=== PATIENT | male | born 1940 | race Caucasian/White ===

== ENCOUNTER 2019-08-27 12:54 | Outpatient (CLI) | payer OTHER, MEDICAID | END 2019-08-27 21:07 | disposition home or self-care (01) | LOC: SRD 12:54 | PROVIDERS: ATTEND Internal Medicine | DX: Z01.818 Encounter for other preprocedural examination (principal) | CPT/HCPCS: 71046-TC ==

== ENCOUNTER 2020-04-05 19:19 | Inpatient (IN) | payer OTHER, MEDICAID ==
[~2020-04-05] VITALS: Ht 170.2 cm; Wt 84.4 kg
[2020-04-05 19:19] VITALS: BP_SYST 124
--- NOTE | 2020-04-05 19:19 | NUR ---
Placed in room 3 . Placed on radiation monitor, blood pressure machine and pulse oximeter. To gown for exam. Side rails up.
--- NOTE | 2020-04-05 19:25 | NUR ---
ER at bedside examining patient.
--- NOTE | 2020-04-05 19:30 | NUR ---
Pt biba for witness tonic clonic seizure x 1 hr ago. Son, Juan Antonio stated patient seizure lasted 30 seconds. Recent knee surgery on Monday03/30/20. Son also stated pt had not passed bowel since Monday03/29/2020. Pt does not remember seizure, has hx. Pt AxOx3, denies SOB, FEVER, CP. Side rails up, seizure pads in place.
--- NOTE | 2020-04-05 19:35 | NUR ---
sleep technologist at bedside.
[2020-04-05 19:53] LABS: BASOPHILS % (AUTO) 0.2 % (0.0-2.0); EOSINOPHILS % (AUTO) 0.4 % (0.0-4.0); HEMATOCRIT 27.6 % (36-54); HEMOGLOBIN 9.3 g/dL (14.0-18.0); LYMPHOCYTES # (AUTO) 0.7 K/uL (1.0-5.5); LYMPHOCYTES % (AUTO) 6.8 % (20.5-51.5); MEAN CORPUSCULAR HEMOGLOBIN 28 pg (27-31); MEAN CORPUSCULAR HGB CONC 34 % (32-36); MEAN CORPUSCULAR VOLUME 85 fL (79.0-98.0); MONOCYTES # (AUTO) 0.9 K/uL (0.0-1.0); NEUTROPHILS # (AUTO) 8.2 K/uL (1.8-7.7); NEUTROPHILS % (AUTO) 83.6 % (40.0-70.0); PLATELET COUNT (AUTO) 280 K/uL (130-430); RED BLOOD CELL COUNT(AUTO) 3.26 MIL/uL (4.2-6.2); RED CELL DISTRIBUTION WIDTH 16.2 % (9.0-15.0); WHITE BLOOD COUNT (AUTO) 9.8 K/uL (4.8-10.8)
--- NOTE | 2020-04-05 20:00 | NUR ---
Pt taken to CT scan w/ radiology director via [place].
[2020-04-05 20:16] LABS: SODIUM SERUM 127 mmol/L (136-145)
[2020-04-05 20:31] LABS: ANION GAP 11 (5-15); CHLORIDE 94 mmol/L (98-107); GLUCOSE 94 mg/dL (70-99); POTASSIUM 5.8 mmol/L (3.5-5.1)
[2020-04-05 20:32] LABS: ALANINE AMINOTRANSFERASE 48 U/L (12-78); ALBUMIN 2.6 g/dL (3.4-4.8); ASPARTATE AMINOTRANSFERASE 36 U/L (10-37); CALCIUM 8.4 mg/dL (8.4-11.0); CREATININE 6.96 mg/dL (0.55-1.30); TOTAL BILIRUBIN 1.1 mg/dL (0.0-1.0); UREA NITROGEN, BLOOD 60 mg/dL (8-21)
[2020-04-05 20:54] LABS: BILIRUBIN,URINE NEGATIVE (NEGATIVE); BLOOD, URINE NEGATIVE (NEGATIVE); COLOR,URINE YELLOW (YELLOW); GLUCOSE,URINE NEGATIVE (NEGATIVE); KETONES,URINE NEGATIVE (NEGATIVE); LEUKOCYTE ESTERASE ,URINE NEGATIVE (NEGATIVE); NITRITE, URINE NEGATIVE (NEGATIVE); PROTEIN URINE NEGATIVE (NEGATIVE); UROBILINOGEN,URINE 0.2 (0.2-1.0)
[2020-04-05 21:06] LABS: CLARITY/URINE SLIGHTLY HAZY (CLEAR)
--- NOTE | 2020-04-05 22:34 | NUR ---
Pt requesting urinal, placed at bedside.
[2020-04-06] MEDS ORDERED: SODIUM POLYSTYRENE SULFONATE 15 GM/60 ML UDBTL PO ONE (00:15)
--- NOTE | 2020-04-06 00:21 | NUR ---
Patient will be admitted to care of . Admitted to tele unit. Will go to room 100b. Belongings list completed. Complete and up to date summary report printed. SBAR report to be given at bedside with opportunity for questions.
[2020-04-06] MEDS: NACL 0.9% 1,000 ML IV SCH ×3 (00:42→20:15)
--- NOTE | 2020-04-06 01:35 | NUR ---
# 16 FR Armstrong catheter with use of sterile technique. Immediate return of 1400 cc urine noted. Bedside drainage bag placed below level of bladder. Pt tolerated procedure well.
--- NOTE | 2020-04-06 02:40 | NUR ---
INITIAL NOTES: PT IS AWAKE ,KENYAN SPEAKING ; NOT IN ANY ACUTE DISTRESS; VITALS ARE STABLE ; ASSESSMENT DONE ; IV TO THE R UPPER ARM IV FLUID IS INFUSING WELL . NOTICED DRESSING TO THE LEFT KNEE IS OFF ; REMOVED DRESSING CLEANED THE SITE , PT HAS 31 BAIRON ON ; MULTIPLE BLISTERS INTACT WITH CLEAR FLUIDS AND SOME OPEN BLISTERS ALSO NOTICED ; NOTICED A SMALL SPACE IS OPEN IN BETWEEN [id number]; NO DRAINAGE NOTICED ; PT HAS MILD REDNESS AROUND WITH EDEMA AROUND THE INCISION ; NOTICE PURPLE AND RED DISCOLORATION TO THE LEFT POSTERIOR THIGH AND LOWER LEG INCISION SITE CLEANED WITH NS ; PAT DRIED ;APPLIED NON ADHERENT DRESSING AND ABD PAD ON TOP OF IT AND COVERED WITH KERLIX; BED IN LOW AND LOCK POSITION , CALL SCOTT IN REACH ; ENCOURAGED PT TO CALL FOR ANY ASSIST . Addendum: 04/06/20 at 0637 by Stiven Oglesby RN IMMEDIATELY AFTER PT CAME DRAINED 2000 ML URINE . PT HAS A LUCAS CATH ; DRAINING TO GRAVITY ; DARK YELLOW COLOR URINE . Addendum: 04/06/20 at 0720 by Stiven Oglesby RN LEFT KNEE WARM TO TOUCH Addendum: 04/06/20 at 0738 by Stiven Oglesby RN CORRECTION : INCISION SITE IS SURROUNDED WITH EDEMA AND REDNESS , NO DRAINAGE OR FOUL SMELL NOTICED
[2020-04-06 03:19] VITALS: BP_SYST 123
--- NOTE | 2020-04-06 04:00 | NUR ---
RN NOTES: PT IS SLEEPING , NOT IN ANY ACUTE DISTRESS; RESPIRATION IS EVEN AND NONLABORED ; WILL CONTINUE TO MONITOR PT .
--- NOTE | 2020-04-06 06:07 | NUR ---
RN NOTES: PT IS SLEEPING , NOT IN ANY ACUTE DISTRESS; RESPIRATION IS EVEN AND NON LABORED ; WILL CONTINUE TO MONITOR PT .
--- NOTE | 2020-04-06 07:06 | NUR ---
Nutrition Update Seymour Scale 16 noted. Pt admitted for ARF, Hyperkalemia Diet: Renal Standard BMI: 29.2 kg/m2 RD to follow per nutrition care standards.
--- NOTE | 2020-04-06 07:20 | NUR ---
CLOSING NOTES: REPORT GIVEN TO RN AT BEDSIDE ; PT IS AWAKE ; COMFORTABLE ; NOT IN ANY ACUTE DISTRESS ; ALL NEEDS ATTENDED; PT HAD A URINE OUT PUT OF 4550 ML INCLUDING THE ER ; PRIMARY RN MADE AWARE AND REQUESTED TO NOTIFY .
[2020-04-06 07:58] VITALS: BP_SYST 127
--- NOTE | 2020-04-06 07:58 | NUR ---
INITIAL ROUNDS/BM Received pt AAOx4, no s/s resp distress, no c/o pain or discomfort. Pt assisted to the bathroom using FWW-pt had a large BM, Pt assisted back to bed. Pt has Armstrong draining to gravity with yellow urine. Plan of care for the day reviewed with pt-pt verbalized his understanding. Noted dressing to LLE clean, dry and intact. IVF infusing well to SANDEEP at ordered rate with no s/s infiltration to site. Pain management, skin and safety discussed-teach back done. Pt now sitting up in bed eating his breakfast. Call light within reach.
[2020-04-06 07:59] LABS: BASOPHILS % (AUTO) 0.3 % (0.0-2.0); EOSINOPHILS % (AUTO) 0.2 % (0.0-4.0); HEMATOCRIT 31.6 % (36-54); HEMOGLOBIN 10.6 g/dL (14.0-18.0); LYMPHOCYTES # (AUTO) 0.8 K/uL (1.0-5.5); LYMPHOCYTES % (AUTO) 7.2 % (20.5-51.5); MEAN CORPUSCULAR HEMOGLOBIN 28 pg (27-31); MEAN CORPUSCULAR HGB CONC 34 % (32-36); MEAN CORPUSCULAR VOLUME 84 fL (79.0-98.0); MONOCYTES # (AUTO) 0.7 K/uL (0.0-1.0); MONOCYTES % (AUTO) 6.2 % (1.7-9.3); NEUTROPHILS # (AUTO) 9.3 K/uL (1.8-7.7); NEUTROPHILS % (AUTO) 86.1 % (40.0-70.0); PLATELET COUNT (AUTO) 280 K/uL (130-430); RED BLOOD CELL COUNT(AUTO) 3.74 MIL/uL (4.2-6.2); RED CELL DISTRIBUTION WIDTH 16.3 % (9.0-15.0); WHITE BLOOD COUNT (AUTO) 10.8 K/uL (4.8-10.8)
[2020-04-06 08:26] LABS: ALANINE AMINOTRANSFERASE 46 U/L (12-78); ALBUMIN 2.6 g/dL (3.4-4.8); ANION GAP 10 (5-15); ASPARTATE AMINOTRANSFERASE 37 U/L (10-37); CALCIUM 8.6 mg/dL (8.4-11.0); CHLORIDE 102 mmol/L (98-107); CREATININE 3.95 mg/dL (0.55-1.30); GLUCOSE 87 mg/dL (70-99); POTASSIUM 4.2 mmol/L (3.5-5.1); SODIUM SERUM 137 mmol/L (136-145); TOTAL BILIRUBIN 1.3 mg/dL (0.0-1.0); UREA NITROGEN, BLOOD 43 mg/dL (8-21)
--- NOTE | 2020-04-06 11:11 | NUR ---
Dietitian Recommendations *Continue Renal Standard diet per MD. *Recommend: Nepro BID. ONS will provide additional 850 kcal, 38gm protein. *Encourage pt to increase PO intake. Please see Nutritional Assessment for details. MAYANK, SUSAN
[2020-04-06] MEDS ORDERED: RIVA10TA PO (11:16)
[2020-04-06] MEDS ORDERED: DOCU-144 PO (11:16)
[2020-04-06] MEDS ORDERED: ZONI100C42 PO (11:16)
[2020-04-06] MEDS ORDERED: TAMS-11 PO (11:16)
[2020-04-06] MEDS ORDERED: CELE200C PO (11:16)
[2020-04-06] MEDS ORDERED: FAMO20TA8 PO (11:16)
[2020-04-06] MEDS ORDERED: TRAM50TA2 PO (11:16)
--- NOTE | 2020-04-06 11:42 | NUR ---
ROUNDS/MED REC Pt resting quietly in bed with no s/s resp distress, no c/o pain or discomfort. Spoke with pt's son Manual and pt's home medications obtained-put in med rec for MD to reconcile. Pt seen by SUSAN. Needs met, call light within reach.
--- NOTE | 2020-04-06 13:25 | NUR ---
WOUND EVALUATION: Wound Consult received from Dr. Hill. Thank you, Dr. Hill, for the consult. Patient received in a Rudy Bed with an IsoFlex ROGER mattress, awake, alert, and oriented. Patient is able to turn in bed independently. Seymour Score is a 16. Past Medical History: Hypertension, Seizures, BPH, Right Knee Replacement, left knee surgery (1 week ago). Recent Labs: WBC 10.8, RBC 3.74, hemoglobin 10.6, hematocrit 31.6, BUN 43, creatinine 3.95, alkaline phosphatase 272, serum total protein 6.4, albumin 2.6. Microbiology: MRSA screen results in progress. Intrinsic factors that delay wound healing: Hypoalbuminemia. Extrinsic factors that delay wound healing: Decreased mobility. Wound Assessment: 1. Left knee: Surgical incision, present on admission. Incision is approximated and healing. There are [address] No odor, no drainage. Nakia-incisional area intact. Incision measures 21.2 cm x 0.7 cm. Recommend: Cleanse incision with normal saline. Gently pat dry. Apply Betadine to incision. Cover with Xeroform dressing, then ABD pad. Wrap sites 1-3 with Candice wrap. Perform site care daily, and as needed for dressing soiling or dislodgment. 2. Left Medial Lower Extremity, Inferior to Knee: Wound from an open bulla, present on admission. Site has 70% yellow tissue, 30% red tissue. No odor, scant sanguineous drainage. Periwound intact. Wound measures 4.2 cm x 1.0 cm. 3. Left Medial Lower Extremity, Inferior to Site 2: Wound from an open bulla, present on admission. Site has 90% red tissue, 10% black scabs. No odor, scant sanguineous drainage. Periwound intact. Small, closed, dark-colored bullae present in between sites 2 and 3 and inferior to site 3 (one bulla each). Wound measures 3.9 cm x 3.0 cm. Recommend: Cleanse wounds with normal saline. Gently pat dry around wounds. Apply sure prep to nakia-wounds. Apply hydrogel to wound beds. Cover with foam dressing, overlapping on top of Xeroform dressing laterally. Wrap sites 1-3 with Candice wrap. Perform wound care daily, and as needed for dressing soiling or dislodgment. 4. Left medial distal thigh: Wound from an open bulla, present on admission. Site has 70% dark red tissue, 20% black tissue, 10% yellow tissue. No odor, no drainage. Periwound intact. Wound measures 1.3 cm x 5.0 cm. 5. Left lateral lower extremity: Large flat closed bulla, present on admission. Site has 80% blackish red-colored closed flap wound leg with medial aspect 30% raised closed serous colored fluid-filled bulla. No odor, no drainage. Periwound intact. Multiple closed bullae with serous fluid present medial to site. Wound measures 0.8 cm x 8.2 cm. Recommend: Cleanse sites with normal saline. Apply SurePrep to nakia-wounds. Apply Hydrogel to sites. Cover with foam dressings. Wrap sites 4-5 with Candice wrap. Perform site care daily, and as needed for dressing soiling or dislodgement. Also recommend: Encourage and assist patient as needed with repositioning every 2 hours with pillow support and off-load pressure areas with pillows for pressure re-distribution. Offload, elevate and float bilateral heels with pillows. Perform skin care and monitor skin integrity Q shift. Use moisture barrier cream on buttocks and other moisture susceptible areas QID and as needed for soiling.
[2020-04-06] MEDS ORDERED: traMADol HCL HCL 50 MG TABLET (ULTRAM) PO SCH (14:45)
[2020-04-06] MEDS ORDERED: traMADol HCL HCL 50 MG TABLET (ULTRAM) ONE (15:16)
[2020-04-06 16:05] VITALS: BP_SYST 107
--- NOTE | 2020-04-06 16:05 | NUR ---
ROUNDS Pt resting quietly in bed with no s/s resp distress, no further c/o pain or discomfort. Pt given fresh ice water. Needs met, call light within reach.
--- NOTE | 2020-04-06 16:20 | NUR ---
CONSULT NEPHROLOGY [facility] F DR BUTCHER [phone] S/W [facility] OFFICE
--- NOTE | 2020-04-06 18:54 | NUR ---
CLOSING NOTE Pt resting quietly in bed with no s/s resp distress, no c/o pain or discomfort. IVF infusing well to SANDEEP at ordered rate with no s/s infiltration to site. Armstrong draining to gravity. Pt seen by Dr. Hill-new orders noted. All precautions remain in place. Needs met, call light within reach.
[2020-04-06] MEDS ORDERED: LORazepam 2 MG/ML VIAL IVP PRN (19:00)
[2020-04-06] MEDS ORDERED: ACETAMINOPHEN 325 MG TABLET PO PRN (19:00)
[2020-04-06] MEDS ORDERED: BISACODYL 5 MG TABLET.DR (DULCOLAX) PO PRN (19:00)
--- NOTE | 2020-04-06 19:15 | NUR ---
Initial note: Received report from cheo FENTON. Patient is in bed, resting. No signs of acute distress. Even and nonlabored breathing on room air. IV site is patent and intact. IV fluids infusing as ordered. Armstrong is draining clear yellow urine to gravity. Bed is at lowest position, bed locked. Side rails up x2. Bed alarm on. Call light is with patient. Safety and fall precautions in place. Will continue plan of care. Addendum: 04/06/20 at 2023 by Gabbi Dominguez RN Seizure precautions in place.
[2020-04-06 20:00] VITALS: BP_SYST 107
--- NOTE | 2020-04-06 20:00 | NUR ---
CONSULT REASON FOR CONSULT: GUILLERMINA GRANT WAS NOTIFIED ORDERING PHYSICIAN: DR. GANDHI
[2020-04-06] MEDS: DOCUSATE SODIUM 250 MG CAPSULE PO SCH (20:04)
[2020-04-06] MEDS: PANTOPRAZOLE SODIUM 40 MG TAB PO SCH (20:04)
[2020-04-06] MEDS: TAMSULOSIN HCL 0.4 MG CAP PO SCH (20:04)
[2020-04-06] MEDS ORDERED: ENOXAPARIN SODIUM 30 MG/0.3 ML SYRINGE SUBCUT SCH (21:00)
[2020-04-06] MEDS ORDERED: ZONISAMIDE 100 MG CAPSULE PO SCH (21:00)
--- NOTE | 2020-04-06 22:00 | NUR ---
Rounds: Patient is in bed, sleeping. No s/s of acute distress. Tolerating room air. Breathing even and nonlabored. Call light is with patient. Seizure, safety, and fall precautions in place. Will continue monitoring.
[2020-04-07] VITALS: BP_SYST 113
--- NOTE | 2020-04-07 | NUR ---
NPO after midnight: Patient educated about NPO after midnight. Patient placed on NPO.
--- NOTE | 2020-04-07 00:55 | NUR ---
IV RE-INSERTION: Infiltration to IV site. Restarted on LEFT FOREARM. Successful after 2 attempts. Resumed current IVF of NORMAL SALINE and regulated @ 100 per hour. Will observe for any signs of infiltration.
--- NOTE | 2020-04-07 03:30 | NUR ---
Rounds: Patient in bed, sleeping. No acute distress. Breathing is even and nonlabored on room air. Call light is with patient. Seizure, safety, and fall precautions in place. Will continue monitoring.
[2020-04-07] MEDS: NACL 0.9% 1,000 ML IV SCH (05:06)
--- NOTE | 2020-04-07 06:27 | NUR ---
Closing note: Patient is in bed, sleeping. No acute distress. Breathing is even, nonlabored on room air. Left hand IV site to is patent and intact. IV fluids infusing as ordered. Armstrong is draining clear, yellow urine to gravity. All needs met. Bed is locked at lowest position. Side rails up x2. Call light is with patient. Seizure, safety, and fall precautions in place. Will endorse care to dayshift RN.
[2020-04-07 06:37] LABS: BASOPHILS % (AUTO) 0.4 % (0.0-2.0); EOSINOPHILS # (AUTO) 0.2 K/uL (0.0-0.4); EOSINOPHILS % (AUTO) 2.5 % (0.0-4.0); HEMATOCRIT 28.8 % (36-54); HEMOGLOBIN 9.4 g/dL (14.0-18.0); LYMPHOCYTES # (AUTO) 1.2 K/uL (1.0-5.5); LYMPHOCYTES % (AUTO) 17.3 % (20.5-51.5); MEAN CORPUSCULAR HEMOGLOBIN 28 pg (27-31); MEAN CORPUSCULAR HGB CONC 33 % (32-36); MEAN CORPUSCULAR VOLUME 86 fL (79.0-98.0); MONOCYTES # (AUTO) 0.8 K/uL (0.0-1.0); MONOCYTES % (AUTO) 10.6 % (1.7-9.3); NEUTROPHILS # (AUTO) 4.9 K/uL (1.8-7.7); NEUTROPHILS % (AUTO) 69.2 % (40.0-70.0); PLATELET COUNT (AUTO) 306 K/uL (130-430); RED BLOOD CELL COUNT(AUTO) 3.35 MIL/uL (4.2-6.2); RED CELL DISTRIBUTION WIDTH 16.3 % (9.0-15.0); WHITE BLOOD COUNT (AUTO) 7.1 K/uL (4.8-10.8)
[2020-04-07 07:00] LABS: ALANINE AMINOTRANSFERASE 44 U/L (12-78); ALBUMIN 2.2 g/dL (3.4-4.8); ANION GAP 10 (5-15); ASPARTATE AMINOTRANSFERASE 37 U/L (10-37); CALCIUM 8.1 mg/dL (8.4-11.0); CHLORIDE 109 mmol/L (98-107); CREATININE 1.24 mg/dL (0.55-1.30); FREE T4 (FREE THYROXINE) 1.2 ng/dl (0.8-1.5); GLUCOSE 77 mg/dL (70-99); POTASSIUM 3.8 mmol/L (3.5-5.1); SODIUM SERUM 141 mmol/L (136-145); UREA NITROGEN, BLOOD 17 mg/dL (8-21)
[2020-04-07 07:34] LABS: TOTAL IRON BIND. CAPACITY 171 ug/dL (250-450)
[2020-04-07] MEDS: TAMSULOSIN HCL 0.4 MG CAP PO SCH (07:50)
[2020-04-07] MEDS: DOCUSATE SODIUM 250 MG CAPSULE PO SCH (07:50)
[2020-04-07] MEDS: PANTOPRAZOLE SODIUM 40 MG TAB PO SCH (07:51)
[2020-04-07 08:00] VITALS: BP_SYST 122
--- NOTE | 2020-04-07 08:00 | NUR ---
Initial notes: Patient is awake and alert, he is not showing any signs of distress at this time. He has a patent LFA #22 NS @100ml/hr. He has a recent surgery on left knee, dressing is dry and intact. Patient is NPO this hose finisher as he has a few tests scheduled. He may resume meals after that. Armstrong cath is intact. I got a full report from the night stocker nurse. Bed is low, locked, 2 side rails up and call light within reach.Lindsay FENTON
[2020-04-07] MEDS ORDERED: NEPHROVITE, (FOLIC ACID/VITAMIN B COMP W-C 1 TAB) PO SCH (09:00)
--- NOTE | 2020-04-07 10:02 | NUR ---
Patient is having tests done, does not present any kind of distress. Bed is low, locked, 2 side rails up and call light is within reach. Lindsay FENTON
[2020-04-07 12:00] VITALS: BP_SYST 126
--- NOTE | 2020-04-07 12:09 | NUR ---
Patient is sitting up and having lunch, does not present any signs of distress at this time. Bed is low, locked, 2 side rails up and call light is within reach. Lindsay FNETON
--- NOTE | 2020-04-07 14:16 | NUR ---
Patient is sleeping in bed, not showing any signs of distress at this time. Bed is low, locked, 2 side rails up and call light is within reach. Lindsay FENTON
--- NOTE | 2020-04-07 14:44 | NUR ---
Discharge Planning: Pt has orders for DC home with Home Health; FOOD SERVICE ORDER CLERK reviewed pt's chart; pt is on service with [facility] ([phone] [phone]). FOOD SERVICE ORDER CLERK spoke with Whitney at [facility] who confirmed pt is on service with them, start of care was 04/04/20. FOOD SERVICE ORDER CLERK has faxed pt's information from this hospitalization and alerted Lee that pt will DC home.
[2020-04-07 16:25] VITALS: BP_SYST 128
--- NOTE | 2020-04-07 16:35 | NUR ---
Patient is receiving discharge education. IV line was removed, Leg bag was connected and he was taught how to empty it. Discharge instructions were given. Son was called and given instructions to f/u w/Urologist and Neurologist for appt and leg bag further instructions. They both verbalized comprehension. Lindsay FENTON
[2020-04-07 16:39] VITALS: BP_SYST 128
== END 2020-04-07 17:30 | disposition home health service (06) | DRG 100 ==
LOC: SED 19:19 → STU 04-06 00:15
PROVIDERS: ADMIT Internal Medicine; ATTEND Internal Medicine
DX: G40.409 Other generalized epilepsy and epileptic syndromes, not intractable, without status epilepticus (principal); N17.0 Acute kidney failure with tubular necrosis; E44.0 Moderate protein-calorie malnutrition; E87.1 Hypo-osmolality and hyponatremia; F03.90 Unspecified dementia, unspecified severity, without behavioral disturbance, psychotic disturbance, mood disturbance, and anxiety; N18.9 Chronic kidney disease, unspecified; I12.9 Hypertensive chronic kidney disease with stage 1 through stage 4 chronic kidney disease, or unspecified chronic kidney disease; N40.0 Benign prostatic hyperplasia without lower urinary tract symptoms; M19.90 Unspecified osteoarthritis, unspecified site; G31.9 Degenerative disease of nervous system, unspecified; Z96.651 Presence of right artificial knee joint; D64.9 Anemia, unspecified; E87.5 Hyperkalemia; R33.9 Retention of urine, unspecified; N13.9 Obstructive and reflux uropathy, unspecified; Z68.29 Body mass index [BMI] 29.0-29.9, adult
CPT/HCPCS: 36415; 70450-TC; 71045; 76700-TC; 80053; 81003; 82550-TC; 82607; 83540-TC; 83550-TC; 84439; 84484; 85025; 87081; 95816; 97110-GP; 99285; G0378; J1650; J7030